=== PATIENT | female | born 1965 | race Hispanic/Latino ===

== ENCOUNTER 2017-07-21 09:19 | Emergency (ER) | payer OTHER ==
[2017-07-21] MEDS ORDERED: LACTATED RINGERS 1000ML 1,000 ML IV ONE ×2 (09:43→11:07)
[2017-07-21] MEDS ORDERED: ONDANSETRON HCL 4 MG/2 ML VIAL ONE (09:43)
[2017-07-21] MEDS ORDERED: MAG HYDROX/AL HYDROX/SIMETH ES 30 ML SUSP UDCUP ONE (09:43)
[2017-07-21] MEDS ORDERED: LIDOCAINE HCL 2% VISCOUS 15 ML UDCUP ONE (09:43)
[2017-07-21] MEDS ORDERED: MORPHINE SULFATE 2 MG/ML 1ML SYG ONE (09:43)
[2017-07-21] MEDS ORDERED: FAMOTIDINE/PF 20 MG/2 ML VIAL IV ONE (09:44)
[2017-07-21 09:59] LABS: APPEARANCE,URINE Clear (CLEAR); BILIRUBIN,URINE Negative (NEGATIVE); COLOR,URINE Yellow (YELLOW); GLUCOSE, URINE (UA) Negative (NEGATIVE); KETONES,URINE Negative (NEGATIVE); LEUKOCYTE ESTERASE ,URINE Large (NEGATIVE); NITRATE,URINE Negative (NEGATIVE); OCCULT BLOOD,URINE Negative (NEGATIVE); PROTEIN,URINE Negative (NEGATIVE)
[2017-07-21 10:16] LABS: RBC,URINE None Seen /HPF (0-1)
[2017-07-21 10:18] LABS: SQUAMOUS EPITHELIAL CELL,UR 0-2 /HPF (0-2)
[2017-07-21 10:19] LABS: MUCUS,URINE Few LPF (None Seen)
[2017-07-21 10:20] LABS: BACTERIA,URINE Few /HPF (None Seen)
[2017-07-21 10:27] LABS: BASOPHILS % (AUTO) 0.5 % (0.0-5.0); EOSINOPHILS % (AUTO) 1.2 % (0.0-8.0); HEMATOCRIT 41.1 % (36-48); MEAN CORPUSCULAR HEMOGLOBIN 32.6 pg (27.0-33.0); MEAN CORPUSCULAR HGB CONC 34.7 g/dL (32.0-36.0); MONOCYTES % (AUTO) 6.7 % (3.0-13.0); NEUTROPHILS % (AUTO) 76.6 % (40.0-77.0); PLATELET COUNT (AUTO) 219 K/uL (130-400); RED BLOOD CELL COUNT(AUTO) 4.38 MIL/uL (4.00-5.50); RED CELL DISTRIBUTION WIDTH 13.1 % (11.0-15.5); WHITE BLOOD COUNT (AUTO) 11.7 K/uL (4.8-10.8)
[2017-07-21 10:43] LABS: CREATININE 0.8 mg/dL (0.5-1.5); POTASSIUM 4.1 mmol/L (3.5-5.1)
[2017-07-21 10:47] LABS: ALBUMIN 3.8 g/dL (3.5-5.0); BILIRUBIN,TOTAL 0.5 mg/dL (0.2-1.0); TOTAL PROTEIN, SERUM 7.7 g/dL (6.0-8.3)
[2017-07-21] MEDS ORDERED: CEFTRIAXONE SODIUM 1 GM ONE (11:00)
[2017-07-21] MEDS ORDERED: METOCLOPRAMIDE 10 MG/2 ML VIAL ONE (11:07)
== END 2017-07-21 12:23 | disposition home or self-care (01) ==
LOC: EDH 09:19
DX: N10 Acute pyelonephritis (principal); K29.70 Gastritis, unspecified, without bleeding; Z88.6 Allergy status to analgesic agent; Z87.891 Personal history of nicotine dependence; Z79.899 Other long term (current) drug therapy
CPT/HCPCS: 36415; 74176; 80053; 81001; 83605; 83690; 84484; 85025; 87088; 87186; 93005; 96361; 96374; 96375; 99285; J0696; J2405; J2765; J3490; J7120 ×2

== ENCOUNTER 2022-05-21 15:42 | Emergency (ER) | payer OTHER ==
[~2022-05-21] VITALS: Ht 154.9 cm; Wt 87.5 kg
[2022-05-21 16:34] LABS: BASOPHILS % (AUTO) 0.3 % (0.0-5.0); EOSINOPHILS % (AUTO) 3.2 % (0.0-8.0); HEMATOCRIT 41.7 % (36-48); LYMPHOCYTES % (AUTO) 41.6 % (21.0-51.0); MEAN CORPUSCULAR HEMOGLOBIN 31.4 pg (27.0-33.0); MEAN CORPUSCULAR HGB CONC 33.3 g/dL (32.0-36.0); MEAN CORPUSCULAR VOLUME 94.1 fL (79-99); MONOCYTES % (AUTO) 8.7 % (3.0-13.0); NEUTROPHILS % (AUTO) 45.9 % (40.0-77.0); PLATELET COUNT (AUTO) 230 K/uL (130-400); RED BLOOD CELL COUNT(AUTO) 4.43 MIL/uL (4.00-5.50); RED CELL DISTRIBUTION WIDTH 12.8 % (11.0-15.5); WHITE BLOOD COUNT (AUTO) 7.2 K/uL (4.8-10.8)
[2022-05-21 16:52] LABS: CREATININE 0.7 mg/dL (0.5-1.5); POTASSIUM 3.6 mmol/L (3.5-5.1)
[2022-05-21 17:02] LABS: ALBUMIN 4.2 g/dL (3.5-5.0); TOTAL PROTEIN, SERUM 8.2 g/dL (6.0-8.3)
[2022-05-21] MEDS ORDERED: ACETAMINOPHEN 500 MG TABLET PO ONE (20:00)
[2022-05-21] MEDS ORDERED: NIFEDIPINE 10 MG CAP PO ONE (20:00)
[2022-05-21 20:43] VITALS: BP 132/73
== END 2022-05-21 20:47 | disposition home or self-care (01) ==
LOC: EDH 15:42
DX: R07.89 Other chest pain (principal); K21.9 Gastro-esophageal reflux disease without esophagitis; Z79.899 Other long term (current) drug therapy
CPT/HCPCS: 36415; 71045; 80053; 83605; 84484; 85025; 93005

== ENCOUNTER 2024-09-03 10:11 | Emergency (ER) | payer BC, OTHER ==
[~2024-09-03] VITALS: Ht 152.4 cm; Wt 77.1 kg
--- NOTE | 2024-09-03 10:24 | ERN ---
ED Note History of Present Illness Stated Complaint: MID LOWER BACK PAIN Chief Complaint: Back Pain-No Injury Time Seen by MD: 10:15 Dictation: PATIENT IS A 59-YEAR-OLD FEMALE COMING IN TODAY WITH COMPLAINTS OF DIFFUSE LUMBOSACRAL PAIN THAT RADIATES DOWN POSTERIOR BOTH EXTREMITIES ONSET TWO DAYS PRIOR TO ARRIVAL. SHE DENIES ANY HISTORY OF TRAUMA OR FALLS NO PRIOR SURGERIES. STATES SHE HAD GONE FOR A WALK ON WEDNESDAY AND WHEN SHE GOT HOME FROM THE WALK IS WHEN SHE NOTICED THE PAIN IN THE SYMPTOMS. SHE DENIES ANY CHANGE IN BOWEL OR BLADDER FUNCTION. NO FEVER NO CHILLS Allergies: Coded Allergies: aspirin (Unverified Allergy, Unknown, 09/03/24) Past Medical History Past Medical History: GERD, Hypertension Additional Past Medical Hx: HIATAL HERNIA Surgical History: None Surgical History Other: HIATAL HERNIA History: Not Applicable RN Note Reviewed/Agreed w/PFSH: Yes Review of System Dictation VITAL SIGNS REVIEWED GENERAL APPEARANCE: ALERT, ORIENTED X 3, MODERATE ACUTE DISTRESS, WELL DEVELOPED, NOURISHED. HEAD AND FACE: NON-TRAUMATIC. EYES: PERRL, PINK CONJUNCTIVAS, EYELID NO TRAUMA, ANTERIOR CHAMBER WITH ARCUS SENILIS. EARS: PINNAS INTACT AND NO SIGNS OF TRAUMA OR ERYTHEMA EAR CANALS CLEAR AND NO DISCHARGE TM NO ERYTHEMA NOSE: NO DISCHARGE, NO BLEEDING. OROPHARYNX: MOUTH NORMAL, TONGUE PINK, PHARYNX CLEAR,NO ERYTHEMA, TONSILS NO EXUDATES, NO ABSCESSES NOTED, MUCOUS MEMBRANE MOIST NECK: SUPPLE, NON-TENDER, NO THYROMEGALY, NO MASSES, NO JVD, NO BRUITS BREAST:DEFERRED CHEST:NO TENDERNESS, NO CREPITUS, NO PARADOXICAL MOVEMENT, NO RETRACTIONS LUNGS:CLEAR, WELL-VENTILATED, SYMMETRIC, NO RALES, NO WHEEZING, NO RHONCHI, NO STRIDOR, GOOD BREATH SOUNDS BILATERALLY HEART: REGULAR RATE, REGULAR RHYTHM, NO MURMUR, NO GALLOPS VASCULAR: NO PERIPHERAL EDEMA, ABDOMEN: SOFT, POSITIVE BOWEL SOUNDS, NONDISTENDED, NO GUARDING, NONTENDER, NO REBOUND, NO MASSES NO HEPATOMEGALY, NO SPLENOMEGALY, NO TOBIAS'S SIGN, NO HERNIAS. RECTAL: DEFERRED GENITAL: DEFERRED NEUROLOGICAL: NORMAL SPEECH, MOTOR FUNCTION INTACT, SENSORY FUNCTION INTACT MUSCULOSKELETAL: NECK NONTENDER, FULL RANGE OF MOTION, LUMBOSACRAL TENDERNESS WITH PALPATION, FULL RANGE OF MOTION, NO STEP-OFFS NEGATIVE STRAIGHT LEG RAISE BILATERALLY 10 EXTREMITIES: NONTENDER, FULL RANGE OF MOTION SKIN: COLOR PINK, DRY, NO TURGOR, NO RASH, NO LACERATIONS, NO ABRASIONS, NO CONTUSIONS. LYMPHATIC: DEFERRED Initial Vital Sign VS Vital Signs Date Time Temp Pulse Resp B/P (MAP) Pulse Ox O2 Delivery O2 Flow Rate FiO2 09/03/24 10:13 98.2 71 16 148/73 99 Room Air 0 Physical Exam Dictation VITAL SIGNS REVIEWED GENERAL APPEARANCE: ALERT, ORIENTED X 3, ACUTE DISTRESS, WELL DEVELOPED, NOURISHED. HEAD AND FACE: NON-TRAUMATIC. EYES: PERRL, PINK CONJUNCTIVAS, EYELID NO TRAUMA, ANTERIOR CHAMBER WITH ARCUS SENILIS. EARS: PINNAS INTACT AND NO SIGNS OF TRAUMA OR ERYTHEMA EAR CANALS CLEAR AND NO DISCHARGE TM NO ERYTHEMA NOSE: NO DISCHARGE, NO BLEEDING. OROPHARYNX: MOUTH NORMAL, TONGUE PINK, PHARYNX CLEAR,NO ERYTHEMA, TONSILS NO EXUDATES, NO ABSCESSES NOTED, MUCOUS MEMBRANE MOIST NECK: SUPPLE, NON-TENDER, NO THYROMEGALY, NO MASSES, NO JVD, NO BRUITS BREAST:DEFERRED CHEST:NO TENDERNESS, NO CREPITUS, NO PARADOXICAL MOVEMENT, NO RETRACTIONS LUNGS:CLEAR, WELL-VENTILATED, SYMMETRIC, NO RALES, NO WHEEZING, NO RHONCHI, NO STRIDOR, GOOD BREATH SOUNDS BILATERALLY HEART: REGULAR RATE, REGULAR RHYTHM, NO MURMUR, NO GALLOPS VASCULAR: NO PERIPHERAL EDEMA, ABDOMEN: SOFT, POSITIVE BOWEL SOUNDS, NONDISTENDED, NO GUARDING, NONTENDER, NO REBOUND, NO MASSES NO HEPATOMEGALY, NO SPLENOMEGALY, NO TOBISA'S SIGN, NO HERNIAS. RECTAL: DEFERRED GENITAL: DEFERRED NEUROLOGICAL: NORMAL SPEECH, MOTOR FUNCTION INTACT, SENSORY FUNCTION INTACT MUSCULOSKELETAL: NECK NONTENDER, FULL RANGE OF MOTION, DIFFUSE LUMBOSACRAL TENDERNESS WITHOUT STEP-OFF, FULL RANGE OF MOTION, GIVE STRAIGHT LEG RAISE BILATERALLY 10 EXTREMITIES: NONTENDER, FULL RANGE OF MOTION SKIN: COLOR PINK, DRY, NO TURGOR, NO RASH, NO LACERATIONS, NO ABRASIONS, NO CONTUSIONS. LYMPHATIC: DEFERRED Results (Laboratory/Radiology) Laboratory/Radiology EXAM: CR Lumbar Spine, 3 View. CLINICAL HISTORY: NON TRAUMA LUMBAR PAIN THAT RADIATES DOWN POSTERIOR BOTH EXTREMITIES COMPARISON: None provided. FINDINGS: BONES: No fracture in the lumbar spine. Straightening of the lumbar spine. No dislocation. ALIGNMENT: Alignment is within normal limits. No significant scoliosis. DISCS / DEGENERATIVE CHANGES: Mild degenerative changes which are most pronounced at L5/S1. SOFT TISSUES: The soft tissues are unremarkable. IMPRESSION: 1. No fracture or dislocation in the lumbar spine. 2. Straightening of the lumbar spine. This may be due to paraspinal muscle spasm. 3. Mild degenerative changes which are most pronounced at L5/S1. /[facility] Reviewed?: Yes ED Course ED Course Orders Procedure Category Date Status Time Lumbar Spine 2-3vws RAD 09/03/24 Resulted 10:21 Cyclobenzaprine Hcl PHA 09/03/24 Complete (Cyclobenzaprine Hcl 10:30 Dexamethasone 4mg/Ml PHA 09/03/24 Complete 1ml Vial (Dexametha 10:30 Ibuprofen 800 Mg Tab PHA 09/03/24 Complete (Motrin) 10:30 Current Medications Medications (Trade) Dose Ordered Sig/Lauryn Route PRN Reason Start Time Stop Time Status Last Admin Dose Admin Cyclobenzaprine HCl (Cyclobenzaprine HCl) 10 mg ONCE ONCE PO 09/03/24 10:30 09/03/24 10:31 DC 09/03/24 10:44 Dexamethasone Sodium Phosphate (dexaMETHasone 4MG/ML 1ML VIAL) 8 mg ONCE ONCE IM 09/03/24 10:30 09/03/24 10:31 DC 09/03/24 10:44 Ibuprofen (moTRIN) 800 mg ONCE ONCE PO 09/03/24 10:30 09/03/24 10:25 DC Vital Signs Date Time Temp Pulse Resp B/P (MAP) Pulse Ox O2 Delivery O2 Flow Rate FiO2 09/03/24 10:13 98.2 71 16 148/73 99 Room Air 0 1140/PAIN MARKEDLY REDUCED AFTER TREATMENT. PATIENT ADVISED TO SEE HER PRIMARY CARE DOCTOR FOR RECOMMENDED MRI WE WILL BE SENT HOME WITH IBUPROFEN, PREDNISONE AND OMEPRAZOLE Medical Decision Making MDM MEDICAL DECISION-MAKING BASED ON LUMBAR SPINE FILM. PATIENT TREATED EMPIRICALLY FOR LOW BACK PAIN WITH SCIATICA DISCHARGED HOME AFTER FILM WITH IBUPROFEN/PREDNISONE/OMEPRAZOLE INSTRUCTIONS FOR WARM COMPRESSES SEVERAL TIMES A DAY AND SEE HER DOCTOR WEDNESDAY FOR RECOMMENDED MRI DX & DISP Disposition: Discharge Departure Impression: Primary Impression: Lumbar pain with radiation down both legs Additional Impression: DJD (degenerative joint disease), lumbosacral Condition: Stable Scripts Prednisone (Prednisone) 20 Mg Tablet 1 TAB PO AD for 6 Days, #14 TAB 0 Refills TAKE 1 TAB BY MOUTH THREE TIMES PER DAY X3 DAYS, THEN TAKE 1 TAB BY MOUTH TWICE A DAY X2 DAYS, THEN TAKE 1 TAB BY MOUTH ONCE A DAY X1 DAY. TAKE WITH FOOD Prov: MARIANNE BRUNNER NP 09/03/24 Omeprazole (Omeprazole) 40 Mg Capsule.dr 1 CAP PO DAILY for 30 Days, #30 CAP 0 Refills Prov: MARIANNE BRUNNER NP 09/03/24 Additional Instructions: FOLLOW-UP WITH PRIMARY CARE PROVIDER IN 1 TO 2 DAYS. TAKE MEDICATIONS DIRECTED HERE IN THE EMERGENCY ROOM. OKAY TO CONTINUE HOME MEDICATIONS UNLESS OTHERWISE DISCUSSED DURING YOUR VISIT IN THE EMERGENCY ROOM TODAY. RETURN TO YOUR NEAREST EMERGENCY ROOM IF SYMPTOMS WORSEN OR IF THERE IS NO IMPROVEMENT. CALL 911 IF YOU NEED IMMEDIATE ASSISTANCE. TAKE TYLENOL OR MOTRIN [id number] NEEDED AND IF NO CONTRAINDICATIONS ARE PRESENT. INCREASE ORAL HYDRATION. A WOUND CULTURE OR URINE CULTURE WAS ORDERED HERE IN THE EMERGENCY ROOM DEPARTMENT PLEASE FOLLOW-UP WITH PRIMARY CARE PROVIDER AND ADVISE THEM TO GET REPEAT PORTS FROM OUR FACILITY. IF YOU HAD ANY OLIVIA WRAP/SPLINTS THAT WERE APPLIED HERE, PLEASE DO NOT REMOVE THEM UNTIL YOU SEE YOUR PRIMARY CARE OR SPECIALTY. TAKE TYLENOL ARTHRITIS 650 MG/[id number] ONE EVERY 8 HOURS FOR THE NEXT TWO DAYS. TAKE PREDNISONE DIRECTED UNTIL GONE. TAKE OMEPRAZOLE DAILY FOR YOUR STOMACH, SEE YOUR PRIMARY CARE DOCTOR WEDNESDAY OR WEDNESDAY FOR RECOMMENDED MRI OF YOUR BACK. Referrals: OKSANA MATTA PA-C (PCP) Time of Disposition: 11:39 I have reviewed the case, and I agree with, Diagnosis and Plan MARIANNE BRUNNER NP Sep 03, 2024 10:24
[2024-09-03] MEDS: CYCLOBENZAPRINE HCL 10 MG TABLET PO ONE (10:44)
--- NOTE | 2024-09-03 11:28 | HMCIMG ---
EXAM: CR Lumbar Spine, 3 View. CLINICAL HISTORY: NON TRAUMA LUMBAR PAIN THAT RADIATES DOWN POSTERIOR BOTH EXTREMITIES COMPARISON: None provided. FINDINGS: BONES: No fracture in the lumbar spine. Straightening of the lumbar spine. No dislocation. ALIGNMENT: Alignment is within normal limits. No significant scoliosis. DISCS / DEGENERATIVE CHANGES: Mild degenerative changes which are most pronounced at L5/S1. SOFT TISSUES: The soft tissues are unremarkable. IMPRESSION: 1. No fracture or dislocation in the lumbar spine. 2. Straightening of the lumbar spine. This may be due to paraspinal muscle spasm. 3. Mild degenerative changes which are most pronounced at L5/S1. /[place]
[2024-09-03] MEDS ORDERED: PRED20TA3 PO (11:40)
[2024-09-03] MEDS ORDERED: OMEP40CA21 PO (11:40)
[2024-09-03 11:46] VITALS: BP 159/65; PULSE 60; RESP 17; TEMP 97; O2SAT 98
== END 2024-09-03 11:54 | disposition home or self-care (01) ==
LOC: EDH 10:11
DX: M47.817 Spondylosis without myelopathy or radiculopathy, lumbosacral region (principal); I10 Essential (primary) hypertension; M54.50 Low back pain, unspecified; Z88.6 Allergy status to analgesic agent
CPT/HCPCS: 99284; 72100; 96372; J1100